=== PATIENT | female | born 1995 | race African-American/Black ===

== ENCOUNTER 2020-01-09 08:26 | Emergency (ER) | payer BC, MEDICAID ==
--- NOTE | 2020-01-09 09:32 | ER Document Report ---
HPI - HPI Time Seen by Provider: 01/09/20 09:28 Pain Level: Denies Notes: CHIEF COMPLAINT: Fall downstairs low back pain HPI: 24-year-old female presenting for evaluation of low back pain after a mechanical fall down stairs this morning. Patient states she slid down on her back. She got up the stairs, slipped and then came back down. Denies head injury. Denies extremity injury. Denies other complaints at this time. Patient is unsure whether she may be ROS: See HPI - all other systems were reviewed and are otherwise negative Constitutional: no fever Eyes: no drainage, no blurred vision ENT: no runny nose, no sore throat Cardiovascular: no chest pain Resp: no SOB, no cough GI: no vomiting, no diarrhea, no abdominal pain : no dysuria Integumentary: no rash Allergy: no hives Musculoskeletal: no extremity pain or swelling, positive back pain Neurological: no numbness/tingling, no weakness MEDICATIONS: I agree with the patient medications as charted by the RN. ALLERGIES: I agree with the allergies as charted by the RN. PAST MEDICAL HISTORY/PAST SURGICAL HISTORY: Reviewed and agree as charted by RN. SOCIAL HISTORY: Reviewed and agree as charted by RN. FAMILY HISTORY: No significant familial comorbid conditions directly related to patient complaint EXAM: Reviewed vital signs as charted by RN. CONSTITUTIONAL: Alert and oriented and responds appropriately to questions. Well-appearing; well-nourished, mild distress secondary to pain HEAD: Normocephalic; atraumatic EYES: PERRL; Conjunctivae clear, sclerae non-icteric ENT: normal nose; no rhinorrhea; moist mucous membranes NECK: Supple without meningismus; non-tender; no cervical lymphadenopathy, no masses CARD: RRR; no murmurs, no clicks, no rubs, no gallops; symmetric distal pulses RESP: Normal chest excursion without splinting or tachypnea; breath sounds clear and equal bilaterally; no wheezes, no rhonchi, no rales ABD/GI: Normal bowel sounds; non-distended; soft, non-tender, no rebound, no guarding; no palpable organomegaly or masses. BACK: The back appears normal and is mildly tender to palpation over the lumbar paraspinous musculature, there is no CVA tenderness EXT: Normal ROM in all joints; non-tender to palpation; no cyanosis, no effusions, no edema SKIN: Normal color for age and race; warm; dry; good turgor; no acute lesions noted NEURO: Moves all extremities equally; Motor and sensory function intact, strength equal 5/5 bilateral lower extremities. Sensation intact and equal bilateral lower extremities. Straight leg raise is negative. No saddle anesthesia on exam. DTRs 2+ intact and equal bilateral lower extremities. PSYCH: The patient's mood and manner are appropriate. Grooming and personal hygiene are appropriate. MDM: 24-year-old female low back pain after a mechanical fall. Given the nature of the injury where she believes she came down 6 steps will obtain x-ray to evaluate for fracture, she is neurologically intact if imaging is negative anticipate discharge home to follow-up with orthopedics Past Medical History - Social History Smoking Status: Never Smoker Family History: Reviewed & Not Pertinent Patient has suicidal ideation: No Patient has homicidal ideation: No Vertical Provider Document - INFECTION CONTROL TRAVEL OUTSIDE OF THE [place] IN LAST 30 DAYS: No Course - Re-evaluation Re-evalutation: 01/09/20 11:21 I do not visualize a fracture in the lumbar spine on my review of the x-ray. Will discharge home with pain management orthopedic follow-up - Vital Signs Vital signs: Temp Pulse Resp BP Pulse Ox 98.3 F 67 18 118/52 L 100 01/09/20 08:51 01/09/20 08:51 01/09/20 08:51 01/09/20 08:51 01/09/20 08:51 Discharge - Discharge Clinical Impression: Fall down stairs Qualifiers: Encounter type: initial encounter Qualified Code(s): W10.8XXA - Fall (on) (f rom) other stairs and steps, initial encounter Low back pain Qualifiers: Chronicity: acute Back pain laterality: bilateral Sciatica presence: without sciatica Qualified Code(s): M54.5 - Low back pain Condition: Stable Disposition: HOME, SELF-CARE Additional Instructions: Imaging studies today did not reveal evidence of a definitive fracture. Take the medications as prescribed no driving if taking muscle relaxers. Follow-up closely with orthopedics for further evaluation and treatment call for appointment. Warm heat to the back to help with spasm Prescriptions: Cyclobenzaprine HCl [Flexeril 10 mg Tablet] 10 mg PO TIDP PRN #15 tab PRN Reason: Naproxen 500 mg PO BID PRN #14 tablet PRN Reason: Referrals: BERNY SUNG MD [Primary Care Provider] - Follow up as needed JUAN ALBERTO DERAS MD [ACTIVE PROVISIONAL STAFF] - Follow up as needed
[2020-01-09] MEDS ORDERED: NAPROXEN 250 MG TABLET PO ONE (11:32)
[2020-01-09 11:42] VITALS: BP 135/82
--- NOTE | 2020-01-09 11:44 | RADIOLOGY REPORT (SQ) ---
EXAM DESCRIPTION: L SPINE WHOLE COMPLETED DATE/TIME: 01/09/2020 11:08 am REASON FOR STUDY: fall low back pain COMPARISON: None. NUMBER OF VIEWS: Five views including obliques. TECHNIQUE: AP, lateral, oblique, and sacral radiographic images acquired of the lumbar spine. LIMITATIONS: None. FINDINGS: MINERALIZATION: Normal. SEGMENTATION: Normal. No transitional anatomy. 5 kmd-hep-osuwywe lumbar vertebral bodies. ALIGNMENT: Normal. VERTEBRAE: Maintained height. No fracture or worrisome bone lesion. DISCS: Preserved height. No significant osteophytes or end plate irregularity. POSTERIOR ELEMENTS: Pedicles and facets are intact. No pars defect or posterior arch defects. HARDWARE: None in the spine. PARASPINAL SOFT TISSUES: Normal. PELVIS: Intact as visualized. No fractures or worrisome bone lesions. SI joints intact. OTHER: No other significant finding. IMPRESSION: NORMAL 5 VIEW LUMBAR SPINE. TECHNICAL DOCUMENTATION: JOB ID: [id number] 2010 [employer]- All Rights Reserved Reading location - IP/workstation name: [email or web address]
== END 2020-01-09 11:40 | disposition home or self-care (01) ==
LOC: ER 08:26
DX: M54.5 Low back pain (principal); W10.9XXA Fall (on) (from) unspecified stairs and steps, initial encounter
CPT/HCPCS: 72110; 81025; 99284

== ENCOUNTER 2020-10-31 15:52 | Emergency (ER) | payer BC, MEDICAID ==
--- NOTE | 2020-10-31 16:12 | ER Document Report ---
ED Medical Screen (RME) - General Chief Complaint: Abdominal Pain Stated Complaint: ABDOMINAL CRAMPING Time Seen by Provider: 10/31/20 16:06 Primary Care Provider: RONNIE DICK NP [Primary Care Provider] - Follow up as needed Notes: Patient presents 2 months complaining of lower pelvic cramping that started today. Patient states that she was recently diagnosed with chlamydia and finished her azithromycin although is also being treated for another infection which she is taking Flagyl. Patient states starting the antibiotics yesterday. Patient does report mild vaginal discharge. I have greeted and performed a rapid initial assessment of this patient. A comprehensive ED assessment and evaluation of the patient, analysis of test results and completion of the medical decision making process will be conducted by additional ED providers. TRAVEL OUTSIDE OF THE [place] IN LAST 30 DAYS: No - Related Data Allergies/Adverse Reactions: iodine Allergy (Verified 10/31/20 16:03) shellfish derived Allergy (Verified 10/31/20 16:03) Sulfa (Sulfonamide Antibiotics) Allergy (Verified 10/31/20 16:03) Past Medical History - Social History Drug Abuse: Marijuana Physical Exam - Vital signs Vitals: Temp Pulse Resp BP Pulse Ox 98.4 F 102 H 20 120/63 98 10/31/20 15:57 10/31/20 15:57 10/31/20 15:57 10/31/20 15:57 10/31/20 15:57 - Abdominal Tenderness: Tender - Lower abdomen tender, exam limited as patient is in chair Course - Vital Signs Vital signs: Temp Pulse Resp BP Pulse Ox 98.4 F 102 H 20 120/63 98 10/31/20 15:57 10/31/20 15:57 10/31/20 15:57 10/31/20 15:57 10/31/20 15:57 Doctor's Discharge - Discharge Referrals: RONNIE DICK NP [Primary Care Provider] - Follow up as needed
[2020-10-31 17:11] LABS: ABSOLUTE EOSINOPHILS # (AUTO) 0.2 10^3/uL (0.0-0.6); ABSOLUTE LYMPHOCYTES (AUTO) 1.4 10^3/uL (0.5-4.7); ABSOLUTE MONOCYTES (AUTO) 0.7 10^3/uL (0.1-1.4); ABSOLUTE NEUT (AUTO) 5.5 10^3/uL (1.7-8.2); BASOPHILS % (AUTO) 0.3 % (0-2); EOSINOPHILS % (AUTO) 2.5 % (0-6); HEMATOCRIT 36.1 % (36.0-47.0); HEMOGLOBIN 12.5 g/dL (12.0-15.5); LYMPHOCYTES % (AUTO) 18.2 % (13-45); MEAN CORPUSCULAR HEMOGLOBIN 31.3 pg (27.0-33.4); MEAN CORPUSCULAR HGB CONC 34.7 g/dL (32.0-36.0); MEAN CORPUSCULAR VOLUME 90 fl (80-97); MONOCYTES % (AUTO) 9.4 % (3-13); PLATELET COUNT 361 10^3/uL (150-450); RED BLOOD COUNT 4.01 10^6/uL (3.72-5.28); RED CELL DISTRIBUTION WIDTH 12.1 % (11.5-14.0); SEGMENTED NEUTROPHILS % (AUTO) 69.6 % (42-78); TOTAL CELLS COUNTED % (AUTO) 100 %; WHITE BLOOD COUNT 7.9 10^3/uL (4.0-10.5)
[2020-10-31 17:32] LABS: ALBUMIN 4.4 g/dL (3.5-5.0); ALKALINE PHOSPHATASE 52 U/L (38-126); ANION GAP 7 (5-19); ASPARTATE AMINO TRANSFERASE 30 U/L (14-36); BILIRUBIN,DIRECT 0.1 mg/dL (0.0-0.4); BILIRUBIN,TOTAL 0.3 mg/dL (0.2-1.3); BLOOD UREA NITROGEN 10 mg/dL (7-20); CALCIUM 9.9 mg/dL (8.4-10.2); CARBON DIOXIDE 27 mmol/L (22-30); CHLORIDE 103 mmol/L (98-107); GLUCOSE 91 mg/dL (75-110); POTASSIUM 4.1 mmol/L (3.6-5.0); TOTAL PROTEIN 8.5 g/dL (6.3-8.2)
[2020-10-31 17:35] LABS: APPEARANCE,URINE SLIGHTLY-CLOUDY; BILIRUBIN,URINE NEGATIVE (NEGATIVE); COLOR,URINE YELLOW; GLUCOSE, URINE NEGATIVE (NEGATIVE); KETONES,URINE TRACE mg/dL (NEGATIVE); LEUKOCYTE ESTERASE,URINE LARGE (NEGATIVE); NITRITE,URINE NEGATIVE (NEGATIVE); PROTEIN,URINE 30 mg/dL (NEGATIVE); URINE SPECIFIC GRAVITY 1.028
--- NOTE | 2020-10-31 19:11 | RADIOLOGY REPORT (SQ) ---
EXAM DESCRIPTION: U/S OB TRANSVAG W/DOPPLER IMAGES COMPLETED DATE/TIME: 10/31/2020 6:47 pm REASON FOR STUDY: lower abd pain COMPARISON: None. TECHNIQUE: Transvaginal static and realtime grayscale images acquired of the pelvis. Additional adalgisa cted spectral and color Doppler images recorded. All images stored on PACs. bHCG: Not available. CLINICAL DATES: 8 week 0 day. LIMITATIONS: None. FINDINGS: FETUS: Single Living intrauterine . ULTRASOUND EGA: 8 week 5 day. ULTRASOUND JAME: 06/07/2021. EFW: Not applicable less than 20 weeks. CRL: 2.05 cm. FHR: 173 beats per minute. SURVEY: No visualized anomalies. AMNIOTIC FLUID: Adequate amount. PLACENTA: Not yet developed due to early gestation. SUBCHORIONIC BLEED: No. SIZE OF BLEED: Not applicable. UTERUS: No masses. No anomalies. CERVICAL LENGTH: 2.6 cm. Closed. RIGHT ADNEXA: Ovary not identified due to poor acoustical window. No adnexal free fluid. No adnexal masses. LEFT ADNEXA: Normal ovary with normal vascular flow. No adnexal free fluid. No adnexal masses. FREE FLUID: None. OTHER: No other significant finding. IMPRESSION: LIVING INTRAUTERINE . EGA 8 WEEK 5 DAY. Trimester of : First trimester - 0 to 13 weeks. TECHNICAL DOCUMENTATION: JOB ID: [id number] 2010 [employer]- All Rights Reserved rev Reading location - IP/workstation name: [email or web address]
--- NOTE | 2020-10-31 19:12 | ER Document Report ---
ED General - General Chief Complaint: Abdominal Pain Stated Complaint: ABDOMINAL CRAMPING Time Seen by Provider: 10/31/20 16:06 Primary Care Provider: MODESTA FOX MD [ACTIVE STAFF] - 11/02/20 (for obgyn follow up) RONNIE DICK NP [Primary Care Provider] - Follow up in 3-5 days TRAVEL OUTSIDE OF THE [place] IN LAST 30 DAYS: No - HPI Notes: 24-year-old female to the emergency department with complaints of of lower abdominal cramping that began today about noon. Patient presents 2 months complaining of lower pelvic cramping that started today. Patient states that she was recently diagnosed with chlamydia and finished her azithromycin although is also being treated for another infection which she is taking Flagyl. Patient states starting the antibiotics yesterday. Patient does report mild vaginal discharge. - Related Data Allergies/Adverse Reactions: iodine Allergy (Verified 10/31/20 16:03) shellfish derived Allergy (Verified 10/31/20 16:03) Sulfa (Sulfonamide Antibiotics) Allergy (Verified 10/31/20 16:03) Past Medical History - General Information source: Patient - Social History Smoking Status: Former Smoker Frequency of alcohol use: None Drug Abuse: Marijuana Family History: Reviewed & Not Pertinent Review of Systems - Review of Systems Constitutional: denies: Chills, Fever EENT: No symptoms reported Cardiovascular: denies: Chest pain, Palpitations, Heart racing, Dizziness, Lightheaded Respiratory: denies: Cough, Short of breath Gastrointestinal: Abdominal pain. denies: Diarrhea, Nausea, Vomiting Genitourinary: Dysuria, Flank pain Female Genitourinary: See HPI, , Vaginal discharge Musculoskeletal: No symptoms reported Skin: No symptoms reported Hematologic/Lymphatic: No symptoms reported Neurological/Psychological: No symptoms reported -: Yes All other systems reviewed and negative Physical Exam - Vital signs Vitals: Temp Pulse Resp BP Pulse Ox 98.4 F 102 H 20 120/63 98 10/31/20 15:57 10/31/20 15:57 10/31/20 15:57 10/31/20 15:57 10/31/20 15:57 Interpretation: Normal - Notes Notes: PHYSICAL EXAMINATION: GENERAL: Well-appearing, well-nourished and in no acute distress. HEAD: Atraumatic, normocephalic. EYES: Pupils equal round and reactive to light, extraocular movements intact, sclera anicteric, conjunctiva are normal. ENT: nares patent, oropharynx clear without exudates. Moist mucous membranes. NECK: Normal range of motion, supple without lymphadenopathy LUNGS: Breath sounds clear to auscultation bilaterally and equal. No wheezes rales or rhonchi. HEART: Regular rate and rhythm without murmurs ABDOMEN: Soft, nontender, normoactive bowel sounds. No guarding, no rebound. No masses appreciated. No CVA tenderness EXTREMITIES: Normal range of motion, no pitting or edema. No cyanosis. NEUROLOGICAL: No focal neurological deficits. Moves all extremities s pontaneously and on command. PSYCH: Normal mood, normal affect. SKIN: Warm, Dry, normal turgor, no rashes or lesions noted. Course - Vital Signs Vital signs: Temp Pulse Resp BP Pulse Ox 98.7 F 87 17 112/55 L 100 10/31/20 19:53 10/31/20 19:53 10/31/20 19:53 10/31/20 19:53 10/31/20 19:53 - Laboratory Results Result Diagrams: 10/31/20 16:54 10/31/20 16:54 Laboratory Results Interpreted: 10/31/20 10/31/20 16:54 16:54 Sodium 136.9 L Total Protein 8.5 H Beta HCG, Quant 737907.00 H Urine Protein 30 H Urine Ketones TRACE H Urine Urobilinogen 2.0 H Ur Leukocyte Esterase LARGE H Transvaginal US 10/31/20 16:10 IMPRESSION: LIVING INTRAUTERINE . EGA 8 WEEK 5 DAY. Trimester of : First trimester - 0 to 13 weeks. Critical Laboratory Results Reviewed: No Critical Results - Radiology Results Critical Radiology Results Reviewed: No Critical Results Discharge - Discharge Clinical Impression: Pelvic pain, Vaginal discharge Qualifiers: Weeks of gestation: 8 weeks Qualified Code(s): Z3A.08 - 8 weeks gestation of Condition: Stable Disposition: HOME, SELF-CARE Instructions: ([facility]) Additional Instructions: Continue to take your Flagyl for your trichomonal infection. You may take Tylenol for any further cramping. Your ultrasound today shows an 8-week 5-day gestation with a heart rate of 170. Please follow-up outpatient with your MOTHER HELPER. Return if you have worsening symptoms such as worsening pain, vaginal bleeding, any other concerns. Follow-up in 2 days with your PCP/MOTHER HELPER for recheck. Referrals: RONNIE DICK NP [Primary Care Provider] - Follow up in 3-5 days MODESTA FOX MD [ACTIVE STAFF] - 11/02/20 (for obgyn follow up)
[2020-10-31 19:54] VITALS: BP 112/55
== END 2020-10-31 19:53 | disposition home or self-care (01) ==
LOC: ER 15:52
DX: R10.9 Unspecified abdominal pain (principal); Z88.2 Allergy status to sulfonamides; Z88.8 Allergy status to other drugs, medicaments and biological substances; Z87.891 Personal history of nicotine dependence; R10.2 Pelvic and perineal pain; N89.8 Other specified noninflammatory disorders of vagina
CPT/HCPCS: 36415; 76817; 80053; 81001; 84702; 85025; 86900; 86901; 87086; 87088; 93976; 99284